=== PATIENT | female | born 1985 | race African-American/Black ===

== ENCOUNTER 2017-02-07 10:26 | Emergency (ER) | payer OTHER ==
[~2017-02-07] VITALS: Ht 165.1 cm; Wt 63.6 kg
[~2017-02-07 10:26] MED LIST: METF500T4 PO; RISP.5 PO
[2017-02-07] MEDS ORDERED: INSNOV SQ (10:53)
[2017-02-07] MEDS ORDERED: INSLAN SQ (10:53)
[2017-02-07] MEDS ORDERED: SODIUM CHLORIDE 0.9% 1,000 ML IV ONE (12:15)
[2017-02-07 12:27] LABS: BASOPHILS % (AUTO) 0.8 % (0.0-2.0); EOSINOPHILS % (AUTO) 3.1 % (1.0-6.0); HEMOGLOBIN 10.6 g/dL (12.0-16.0); LYMPHOCYTES # (AUTO) 2.1 K/uL (1.0-4.8); LYMPHOCYTES % (AUTO) 37.9 % (22.0-44.0); MEAN CORPUSCULAR HEMOGLOBIN 27.9 pg (26.0-34.0); MEAN CORPUSCULAR HGB CONC 32.3 G/dL (31.0-37.0); MEAN CORPUSCULAR VOLUME 86 fL (80-100); MONOCYTES # (AUTO) 0.7 K/uL (0.1-1.0); NEUTROPHILS # (AUTO) 2.6 K/uL (1.8-7.7); NEUTROPHILS % (AUTO) 46.2 % (40.0-70.0); PLATELET COUNT (AUTO) 461 K/uL (150-450); RED BLOOD CELL COUNT(AUTO) 3.82 MIL/uL (4.00-5.20); RED CELL DISTRIBUTION WIDTH 16.7 % (11.5-14.5); WHITE BLOOD COUNT (AUTO) 5.7 K/uL (4.5-11.0)
[2017-02-07 12:29] LABS: RBC MORPHOLOGY COMMENT NORMAL RBC MORPH
[2017-02-07 12:33] LABS: ALANINE AMINOTRANSFERASE 76 U/L (12-78); ALBUMIN 2.9 g/dL (3.4-5.0); ANION GAP 8 mmol/L (8-16); ASPARTATE AMINOTRANSFERASE 24 U/L (15-37); BILIRUBIN,TOTAL 0.3 mg/dL (0.1-1.0); CALCIUM, TOTAL 8.3 mg/dL (8.8-10.5); CARBON DIOXIDE 27 mmol/L (22-29); CHLORIDE 104 mmol/L (98-107); CREATININE 0.69 mg/dL (0.60-1.30); GLOMERULAR FILTR. RATE CALC > 60 mL/min (>60); SODIUM SERUM 139 mmol/L (136-145); TOTAL PROTEIN, SERUM 7.4 g/dL (6.4-8.2); UREA NITROGEN, BLOOD 14 mg/dL (7-18)
[2017-02-07] MEDS ORDERED: INSULIN REGULAR, HUMAN 100 UNITS/ML IVP ONE (13:00)
[2017-02-07 13:11] LABS: GLUCOSE COMMENT 1 Doctor Notified; GLUCOSE,POINT OF CARE 425 MG/DL (70-110)
[2017-02-07 14:12] LABS: GLUCOSE,POINT OF CARE 188 MG/DL (70-110)
[2017-02-07 15:49] LABS: APPEARANCE,URINE CLEAR (CLEAR); GLUCOSE, URINE (UA) >=1000 mg/dL (NEGATIVE); KETONES,URINE NEGATIVE (NEGATIVE); LEUKOCYTE ESTERASE ,URINE NEGATIVE (NEGATIVE); OCCULT BLOOD,URINE LARGE (NEGATIVE); PROTEIN,URINE NEGATIVE (NEGATIVE)
[2017-02-07 15:50] LABS: ADD UA MICROSCOPIC YES
[2017-02-07 16:00] LABS: WBC,URINE None Seen /HPF (0-5)
[2017-02-07 16:38] VITALS: BP 113/72
== END 2017-02-07 16:55 | disposition home or self-care (01) ==
LOC: EMS 10:29
DX: E11.65 Type 2 diabetes mellitus with hyperglycemia (principal); F17.210 Nicotine dependence, cigarettes, uncomplicated; Z79.4 Long term (current) use of insulin
CPT/HCPCS: 36415; 80053; 81001; 82009; 82962; 84484; 84703; 85025; 93005; 96361; 96374; 99285; J1815; J7030

== ENCOUNTER 2017-10-16 05:06 | Inpatient (IN) | payer MEDICAID, OTHER ==
[~2017-10-16] VITALS: Ht 162.6 cm; Wt 59.0 kg
[~2017-10-16 05:06] MED LIST changes: +INSLAN SQ; +INSNOV SQ; -METF500T4 PO
[2017-10-16 05:38] LABS: GLUCOSE COMMENT 2 Doctor Notified; GLUCOSE,POINT OF CARE 407 MG/DL (70-110)
[2017-10-16 05:56] LABS: BASOPHILS % (AUTO) 0.4 % (0.0-2.0); EOSINOPHILS % (AUTO) 1.7 % (1.0-6.0); HEMATOCRIT 36.4 % (36-46); HEMOGLOBIN 11.9 g/dL (12.0-16.0); LYMPHOCYTES # (AUTO) 2.1 K/uL (1.0-4.8); LYMPHOCYTES % (AUTO) 28.8 % (22.0-44.0); MEAN CORPUSCULAR HGB CONC 32.5 G/dL (31.0-37.0); MEAN CORPUSCULAR VOLUME 83 fL (80-100); MONOCYTES # (AUTO) 0.8 K/uL (0.1-1.0); MONOCYTES % (AUTO) 10.5 % (2.0-9.0); NEUTROPHILS # (AUTO) 4.3 K/uL (1.8-7.7); NEUTROPHILS % (AUTO) 58.6 % (40.0-70.0); PLATELET COUNT (AUTO) 643 K/uL (150-450); RED CELL DISTRIBUTION WIDTH 17.7 % (11.5-14.5); WHITE BLOOD COUNT (AUTO) 7.3 K/uL (4.5-11.0)
[2017-10-16 06:11] LABS: ALANINE AMINOTRANSFERASE 43 U/L (12-78); ANION GAP 12 mmol/L (8-16); ASPARTATE AMINOTRANSFERASE 33 U/L (15-37); BILIRUBIN,TOTAL 0.2 mg/dL (0.1-1.0); CALCIUM, TOTAL 8.8 mg/dL (8.8-10.5); CARBON DIOXIDE 23 mmol/L (22-29); CHLORIDE 99 mmol/L (98-107); CREATININE 0.67 mg/dL (0.60-1.30); GLOMERULAR FILTR. RATE CALC > 60 mL/min (>60); POTASSIUM 4.2 mmol/L (3.5-5.1); SODIUM SERUM 134 mmol/L (136-145); TOTAL PROTEIN, SERUM 8.2 g/dL (6.4-8.2); UREA NITROGEN, BLOOD 14 mg/dL (7-18)
[2017-10-16 07:57] LABS: GLUCOSE,POINT OF CARE 350 MG/DL (70-110)
[2017-10-16] MEDS ORDERED: INSULIN REGULAR, HUMAN 100 UNITS/ML SQ ONE (08:00)
[2017-10-16 10:03] LABS: GLUCOSE,POINT OF CARE 516 MG/DL (70-110)
[2017-10-16 10:58] LABS: GLUCOSE,POINT OF CARE 447 MG/DL (70-110)
[2017-10-16 12:27] LABS: GLUCOSE COMMENT 2 Doctor Notified; GLUCOSE,POINT OF CARE 308 MG/DL (70-110)
[2017-10-16] MEDS ORDERED: MAG HYDROX/AL HYDROX/SIMETH ES 30 ML SUSPENSION UDCUP PO PRN (12:30)
[2017-10-16] MEDS ORDERED: ZOLPIDEM TARTRATE 10 MG TABLET PO PRN (12:30)
[2017-10-16] MEDS ORDERED: HydrOXYzine PAMOATE 50 MG CAPSULE PO PRN (12:30)
[2017-10-16] MEDS ORDERED: LOPERAMIDE HCL 2 MG CAPSULE PO PRN (12:30)
[2017-10-16] MEDS ORDERED: ACETAMINOPHEN 325 MG TABLET PO PRN (12:30)
[2017-10-16] MEDS ORDERED: GuaiFENesin/D-METHORPHAN [SUGAR-FREE] 200-20MG/10 ML SYRUP UDCUP PO PRN (12:30)
[2017-10-16] MEDS ORDERED: PROMETHAZINE HCL 25 MG TABLET PO PRN (12:30)
[2017-10-16] MEDS ORDERED: MAGNESIUM HYDROXIDE SUSPENSION 30 ML UDCUP PO PRN (12:30)
[2017-10-16] MEDS ORDERED: LORazepam 2 MG TABLET PO PRN (12:30)
[2017-10-16] MEDS ORDERED: OLANZapine 5 MG RAPDIS TABLET PO PRN (12:30)
[2017-10-16] MEDS ORDERED: TUBERCULIN, PURIFIED PROTEIN DERIVATIVE 5 TU/0.1 ML SYG ID ONE (12:30)
[2017-10-16 12:58] LABS: GLUCOSE,POINT OF CARE 320 MG/DL (70-110)
[2017-10-16 13:06] LABS: GLUCOSE, URINE (UA) >=1000 mg/dL (NEGATIVE); KETONES,URINE NEGATIVE (NEGATIVE); LEUKOCYTE ESTERASE ,URINE NEGATIVE (NEGATIVE); OCCULT BLOOD,URINE MODERATE (NEGATIVE); PROTEIN,URINE NEGATIVE (NEGATIVE)
[2017-10-16 13:09] LABS: ADD UA MICROSCOPIC YES; APPEARANCE,URINE HAZY (CLEAR)
[2017-10-16 13:23] LABS: SQUAMOUS EPITHELIAL CELL,UR Moderate /LPF (None Seen)
[2017-10-16 14:47] LABS: GLUCOSE,POINT OF CARE 282 MG/DL (70-110)
[2017-10-16] MEDS ORDERED: DEXTROSE 50%-WATER 25 GM/50 ML SYRINGE IVP PRN (15:45)
[2017-10-16 15:59] VITALS: BP 136/76
[2017-10-16 17:02] LABS: GLUCOSE,POINT OF CARE 226 MG/DL (70-110)
[2017-10-16 18:11] VITALS: BP 113/71
[2017-10-16] MEDS ORDERED: INFLUENZA VIRUS VACCINE QVS 2017-18 (3YR+)/PF 60 MCG/0.5 ML SYRINGE IM ONE (18:45)
[2017-10-16 20:52] LABS: GLUCOSE,POINT OF CARE 439 MG/DL (70-110)
[2017-10-16] MEDS ORDERED: INSULIN DETEMIR 100 UNITS/ML SQ SCH (21:00)
[2017-10-16] MEDS: THIAMINE HCL 100 MG TABLET PO SCH (21:15)
[2017-10-16] MEDS: OLANZapine 5 MG RAPDIS TABLET PO SCH (21:16)
[2017-10-16] MEDS: INSULIN ASPART 100 UNITS/ML SQ PRN (22:49)
[2017-10-16 22:52] LABS: GLUCOSE COMMENT 1 Doctor Notified; GLUCOSE COMMENT 2 Received Meds; GLUCOSE,POINT OF CARE 403 MG/DL (70-110)
[2017-10-16 22:52] LABS: GLUCOSE COMMENT 1 Doctor Notified; GLUCOSE COMMENT 2 Received Meds; GLUCOSE,POINT OF CARE 340 MG/DL (70-110)
[2017-10-17 06:22] LABS: GLUCOSE,POINT OF CARE 119 MG/DL (70-110)
[2017-10-17 08:46] VITALS: BP 104/59
[2017-10-17 09:50] LABS: BASOPHILS % (AUTO) 0.1 % (0.0-2.0); EOSINOPHILS % (AUTO) 0.5 % (1.0-6.0); HEMATOCRIT 33.3 % (36-46); HEMOGLOBIN 10.9 g/dL (12.0-16.0); LYMPHOCYTES # (AUTO) 1.6 K/uL (1.0-4.8); LYMPHOCYTES % (AUTO) 15.3 % (22.0-44.0); MEAN CORPUSCULAR HEMOGLOBIN 27.2 pg (26.0-34.0); MEAN CORPUSCULAR HGB CONC 32.8 G/dL (31.0-37.0); MEAN CORPUSCULAR VOLUME 83 fL (80-100); MONOCYTES # (AUTO) 0.7 K/uL (0.1-1.0); MONOCYTES % (AUTO) 7.2 % (2.0-9.0); NEUTROPHILS # (AUTO) 7.8 K/uL (1.8-7.7); NEUTROPHILS % (AUTO) 76.9 % (40.0-70.0); PLATELET COUNT (AUTO) 594 K/uL (150-450); RED BLOOD CELL COUNT(AUTO) 4.01 MIL/uL (4.00-5.20); RED CELL DISTRIBUTION WIDTH 17.1 % (11.5-14.5); WHITE BLOOD COUNT (AUTO) 10.2 K/uL (4.5-11.0)
[2017-10-17 10:16] LABS: ALANINE AMINOTRANSFERASE 32 U/L (12-78); ALBUMIN 2.5 g/dL (3.4-5.0); ANION GAP 7 mmol/L (8-16); ASPARTATE AMINOTRANSFERASE 21 U/L (15-37); BILIRUBIN,TOTAL 0.3 mg/dL (0.1-1.0); CALCIUM, TOTAL 8.4 mg/dL (8.8-10.5); CARBON DIOXIDE 27 mmol/L (22-29); CHLORIDE 99 mmol/L (98-107); CHOL/HDL RATIO 2.8 (3.9-5.7); CREATININE 0.76 mg/dL (0.60-1.30); GLOMERULAR FILTR. RATE CALC > 60 mL/min (>60); POTASSIUM 4.5 mmol/L (3.5-5.1); SODIUM SERUM 133 mmol/L (136-145); THYROID STIMULATING HORMONE 0.84 uIU/mL (0.36-3.74); TOTAL PROTEIN, SERUM 6.7 g/dL (6.4-8.2); UREA NITROGEN, BLOOD 16 mg/dL (7-18)
[2017-10-17 10:18] LABS: HEMOGLOBIN A1C 14.3 % (4.5-6.2); RBC MORPHOLOGY COMMENT ABNORMAL RBC MORPH
[2017-10-17] MEDS: MULTIVITAMINS WITH MINERALS, THERAPEUTIC TABLET PO SCH (10:24)
[2017-10-17] MEDS: FOLIC ACID 1 MG TABLET PO SCH (10:24)
[2017-10-17] MEDS: THIAMINE HCL 100 MG TABLET PO SCH ×2 (10:25→16:42)
[2017-10-17] MEDS: FLUoxetine HCL 20 MG CAPSULE PO SCH (10:25)
[2017-10-17 10:37] LABS: GLUCOSE,POINT OF CARE 513 MG/DL (70-110)
[2017-10-17] MEDS ORDERED: INSULIN ASPART 100 UNITS/ML SQ ONE (11:00)
[2017-10-17] MEDS ORDERED: INSULIN DETEMIR 100 UNITS/ML SQ SCH (11:00)
[2017-10-17 11:42] LABS: GLUCOSE,POINT OF CARE 480 MG/DL (70-110)
[2017-10-17 12:07] LABS: GLUCOSE,POINT OF CARE 443 MG/DL (70-110)
[2017-10-17] MEDS: INSULIN ASPART 100 UNITS/ML SQ PRN ×3 (12:08→21:22)
[2017-10-17] MEDS ORDERED: IBUPROFEN 400 MG TABLET PO PRN (16:30)
[2017-10-17] MEDS ORDERED: ACETAMINOPHEN 325 MG TABLET PO PRN (16:30)
[2017-10-17 16:37] LABS: GLUCOSE COMMENT 1 Received Meds; GLUCOSE,POINT OF CARE 236 MG/DL (70-110)
[2017-10-17] MEDS: INSULIN DETEMIR 100 UNITS/ML SQ SCH (17:25)
[2017-10-17 17:27] LABS: GLUCOSE COMMENT 1 Received Meds; GLUCOSE,POINT OF CARE 220 MG/DL (70-110)
[2017-10-17 17:55] VITALS: BP 113/68
[2017-10-17] MEDS: OLANZapine 5 MG RAPDIS TABLET PO SCH (21:20)
[2017-10-17 21:22] LABS: GLUCOSE COMMENT 1 Received Meds; GLUCOSE,POINT OF CARE 161 MG/DL (70-110)
[2017-10-18 05:48] LABS: GLUCOSE COMMENT 1 Received Meds; GLUCOSE,POINT OF CARE 142 MG/DL (70-110)
[2017-10-18] MEDS: INSULIN ASPART 100 UNITS/ML SQ PRN ×4 (06:28→21:23)
[2017-10-18 06:37] LABS: CHOL/HDL RATIO 2.7 (3.9-5.7)
[2017-10-18 08:33] VITALS: BP 100/60
[2017-10-18] MEDS ORDERED: FLUoxetine HCL 20 MG CAPSULE PO SCH (09:00)
[2017-10-18] MEDS: FOLIC ACID 1 MG TABLET PO SCH (09:58)
[2017-10-18] MEDS: THIAMINE HCL 100 MG TABLET PO SCH ×2 (09:58→16:45)
[2017-10-18] MEDS: MULTIVITAMINS WITH MINERALS, THERAPEUTIC TABLET PO SCH (09:58)
[2017-10-18] MEDS: FLUoxetine HCL 20 MG CAPSULE PO SCH (09:59)
[2017-10-18] MEDS: INSULIN DETEMIR 100 UNITS/ML SQ SCH ×2 (10:15→17:05)
[2017-10-18 10:17] LABS: GLUCOSE,POINT OF CARE 342 MG/DL (70-110)
[2017-10-18 11:53] LABS: GLUCOSE,POINT OF CARE 285 MG/DL (70-110)
[2017-10-18 16:52] LABS: GLUCOSE COMMENT 1 Doctor Notified; GLUCOSE COMMENT 2 Received Meds; GLUCOSE,POINT OF CARE 419 MG/DL (70-110)
[2017-10-18 17:07] LABS: GLUCOSE COMMENT 1 Received Meds; GLUCOSE,POINT OF CARE 381 MG/DL (70-110)
[2017-10-18 19:15] VITALS: BP 106/61
[2017-10-18 21:22] LABS: GLUCOSE COMMENT 1 Received Meds; GLUCOSE,POINT OF CARE 357 MG/DL (70-110)
[2017-10-18] MEDS: OLANZapine 5 MG RAPDIS TABLET PO SCH (21:23)
[2017-10-19 06:07] LABS: GLUCOSE,POINT OF CARE 107 MG/DL (70-110)
[2017-10-19 08:22] LABS: GLUCOSE COMMENT 1 Received Meds; GLUCOSE,POINT OF CARE 246 MG/DL (70-110)
[2017-10-19 08:40] VITALS: BP 104/73
[2017-10-19] MEDS: INSULIN DETEMIR 100 UNITS/ML SQ SCH ×2 (08:47→17:42)
[2017-10-19] MEDS: FLUoxetine HCL 20 MG CAPSULE PO SCH (09:00)
[2017-10-19] MEDS: FOLIC ACID 1 MG TABLET PO SCH (09:00)
[2017-10-19] MEDS: MULTIVITAMINS WITH MINERALS, THERAPEUTIC TABLET PO SCH (09:00)
[2017-10-19] MEDS: THIAMINE HCL 100 MG TABLET PO SCH ×2 (09:00→16:41)
[2017-10-19 11:57] LABS: GLUCOSE,POINT OF CARE 251 MG/DL (70-110)
[2017-10-19] MEDS: INSULIN ASPART 100 UNITS/ML SQ PRN ×2 (12:12→21:18)
[2017-10-19 16:48] LABS: GLUCOSE,POINT OF CARE 422 MG/DL (70-110)
[2017-10-19 17:23] LABS: GLUCOSE COMMENT 1 Doctor Notified; GLUCOSE COMMENT 2 Repeated; GLUCOSE,POINT OF CARE 427 MG/DL (70-110)
[2017-10-19] MEDS ORDERED: INSULIN ASPART 100 UNITS/ML SQ ONE (17:30)
[2017-10-19 20:05] VITALS: BP 110/76
[2017-10-19] MEDS: OLANZapine 5 MG RAPDIS TABLET PO SCH (20:38)
[2017-10-19 20:48] LABS: GLUCOSE,POINT OF CARE 234 MG/DL (70-110)
[2017-10-20 06:07] LABS: GLUCOSE,POINT OF CARE 254 MG/DL (70-110)
[2017-10-20] MEDS: INSULIN ASPART 100 UNITS/ML SQ SCH ×3 (07:01→17:33)
[2017-10-20] MEDS: INSULIN ASPART 100 UNITS/ML SQ PRN ×3 (07:02→17:34)
[2017-10-20] MEDS: THIAMINE HCL 100 MG TABLET PO SCH ×2 (10:18→17:23)
[2017-10-20] MEDS: FLUoxetine HCL 20 MG CAPSULE PO SCH (10:18)
[2017-10-20] MEDS: FOLIC ACID 1 MG TABLET PO SCH (10:18)
[2017-10-20] MEDS: MULTIVITAMINS WITH MINERALS, THERAPEUTIC TABLET PO SCH (10:18)
[2017-10-20] MEDS: INSULIN DETEMIR 100 UNITS/ML SQ SCH ×2 (10:22→17:40)
[2017-10-20 12:07] LABS: GLUCOSE COMMENT 1 Received Meds; GLUCOSE,POINT OF CARE 440 MG/DL (70-110)
[2017-10-20 12:36] VITALS: BP 104/57
[2017-10-20 17:23] VITALS: BP 116/66
[2017-10-20 17:32] LABS: GLUCOSE,POINT OF CARE 272 MG/DL (70-110)
[2017-10-20] MEDS: OLANZapine 5 MG RAPDIS TABLET PO SCH (21:07)
[2017-10-20 21:17] LABS: GLUCOSE COMMENT 1 Doctor Notified; GLUCOSE,POINT OF CARE 417 MG/DL (70-110)
[2017-10-20] MEDS ORDERED: INSULIN ASPART 100 UNITS/ML SQ ONE (21:30)
[2017-10-20] MEDS: TraZODone HCL 100 MG TABLET PO SCH (21:57)
[2017-10-21 05:52] LABS: GLUCOSE,POINT OF CARE 280 MG/DL (70-110)
[2017-10-21] MEDS: INSULIN ASPART 100 UNITS/ML SQ SCH ×3 (07:16→17:22)
[2017-10-21] MEDS: INSULIN ASPART 100 UNITS/ML SQ PRN (07:17)
[2017-10-21 08:00] VITALS: BP 105/64
[2017-10-21] MEDS: MULTIVITAMINS WITH MINERALS, THERAPEUTIC TABLET PO SCH (09:39)
[2017-10-21] MEDS: FOLIC ACID 1 MG TABLET PO SCH (09:39)
[2017-10-21] MEDS: THIAMINE HCL 100 MG TABLET PO SCH ×2 (09:39→16:37)
[2017-10-21] MEDS: FLUoxetine HCL 20 MG CAPSULE PO SCH (09:39)
[2017-10-21] MEDS: INSULIN DETEMIR 100 UNITS/ML SQ SCH ×2 (09:53→17:23)
[2017-10-21] MEDS ORDERED: INSULIN ASPART 100 UNITS/ML SQ ONE ×3 (11:30→22:15)
[2017-10-21 11:47] LABS: GLUCOSE,POINT OF CARE 476 MG/DL (70-110)
[2017-10-21 16:53] LABS: GLUCOSE,POINT OF CARE 397 MG/DL (70-110)
[2017-10-21 17:28] VITALS: BP 124/75
[2017-10-21] MEDS: TraZODone HCL 100 MG TABLET PO SCH (21:42)
[2017-10-21] MEDS: OLANZapine 5 MG RAPDIS TABLET PO SCH (21:42)
[2017-10-21 21:47] LABS: GLUCOSE,POINT OF CARE 350 MG/DL (70-110)
[2017-10-22 05:47] LABS: GLUCOSE COMMENT 1 Received Meds; GLUCOSE COMMENT 2 Doctor Notified; GLUCOSE,POINT OF CARE 290 MG/DL (70-110)
[2017-10-22] MEDS: INSULIN ASPART 100 UNITS/ML SQ SCH ×3 (07:11→17:37)
[2017-10-22 08:16] VITALS: BP 120/74
[2017-10-22] MEDS: INSULIN DETEMIR 100 UNITS/ML SQ SCH ×2 (09:02→17:30)
[2017-10-22] MEDS: THIAMINE HCL 100 MG TABLET PO SCH ×2 (09:06→16:13)
[2017-10-22] MEDS: MULTIVITAMINS WITH MINERALS, THERAPEUTIC TABLET PO SCH (09:06)
[2017-10-22] MEDS: FOLIC ACID 1 MG TABLET PO SCH (09:06)
[2017-10-22] MEDS: FLUoxetine HCL 20 MG CAPSULE PO SCH (09:06)
[2017-10-22 11:32] LABS: GLUCOSE,POINT OF CARE 265 MG/DL (70-110)
[2017-10-22 16:14] VITALS: BP 112/67
[2017-10-22 17:07] LABS: GLUCOSE COMMENT 1 Doctor Notified; GLUCOSE,POINT OF CARE 482 MG/DL (70-110)
[2017-10-22 17:14] VITALS: BP 123/74
[2017-10-22 19:30] VITALS: BP 121/70
[2017-10-22 20:30] VITALS: BP 118/67
[2017-10-22] MEDS: OLANZapine 5 MG RAPDIS TABLET PO SCH (22:00)
[2017-10-22] MEDS: TraZODone HCL 100 MG TABLET PO SCH (22:01)
[2017-10-22 22:07] LABS: GLUCOSE COMMENT 1 Doctor Notified; GLUCOSE,POINT OF CARE 430 MG/DL (70-110)
[2017-10-22] MEDS ORDERED: INSULIN ASPART 100 UNITS/ML SQ ONE (22:15)
[2017-10-23 05:27] LABS: GLUCOSE COMMENT 1 FASTING; GLUCOSE,POINT OF CARE 196 MG/DL (70-110)
[2017-10-23] MEDS ORDERED: INSULIN ASPART 100 UNITS/ML SQ ONE ×2 (06:15→21:00)
[2017-10-23] MEDS: INSULIN ASPART 100 UNITS/ML SQ SCH ×3 (06:50→17:29)
[2017-10-23 08:00] VITALS: BP 113/75
[2017-10-23] MEDS: FOLIC ACID 1 MG TABLET PO SCH (09:24)
[2017-10-23] MEDS: THIAMINE HCL 100 MG TABLET PO SCH ×2 (09:24→17:28)
[2017-10-23] MEDS: MULTIVITAMINS WITH MINERALS, THERAPEUTIC TABLET PO SCH (09:24)
[2017-10-23] MEDS: FLUoxetine HCL 20 MG CAPSULE PO SCH (09:24)
[2017-10-23] MEDS: INSULIN DETEMIR 100 UNITS/ML SQ SCH ×2 (09:42→17:30)
[2017-10-23 11:27] LABS: GLUCOSE,POINT OF CARE 245 MG/DL (70-110)
[2017-10-23 17:41] LABS: GLUCOSE COMMENT 1 Doctor Notified; GLUCOSE,POINT OF CARE 456 MG/DL (70-110)
[2017-10-23] MEDS: OLANZapine 5 MG RAPDIS TABLET PO SCH (20:12)
[2017-10-23 20:57] LABS: GLUCOSE COMMENT 1 Doctor Notified; GLUCOSE,POINT OF CARE 368 MG/DL (70-110)
[2017-10-23] MEDS ORDERED: TraZODone HCL 150 MG TABLET PO SCH (21:00)
[2017-10-23 21:28] VITALS: BP 121/82
[2017-10-24 06:13] LABS: GLUCOSE COMMENT 1 Received Meds; GLUCOSE,POINT OF CARE 188 MG/DL (70-110)
[2017-10-24] MEDS: INSULIN ASPART 100 UNITS/ML SQ SCH ×3 (07:14→17:00)
[2017-10-24 08:10] VITALS: BP 123/76
[2017-10-24] MEDS: FLUoxetine HCL 20 MG CAPSULE PO SCH (08:16)
[2017-10-24] MEDS: THIAMINE HCL 100 MG TABLET PO SCH ×2 (08:16→16:24)
[2017-10-24] MEDS: MULTIVITAMINS WITH MINERALS, THERAPEUTIC TABLET PO SCH (08:16)
[2017-10-24] MEDS: FOLIC ACID 1 MG TABLET PO SCH (08:16)
[2017-10-24] MEDS: INSULIN DETEMIR 100 UNITS/ML SQ SCH ×2 (08:22→17:14)
[2017-10-24 11:52] LABS: GLUCOSE,POINT OF CARE 376 MG/DL (70-110)
[2017-10-24] MEDS ORDERED: INSULIN ASPART 100 UNITS/ML SQ ONE ×3 (12:00→20:45)
[2017-10-24 16:37] LABS: GLUCOSE COMMENT 1 Received Meds; GLUCOSE,POINT OF CARE 441 MG/DL (70-110)
[2017-10-24 17:31] VITALS: BP 134/76
[2017-10-24] MEDS: MIRTAZAPINE 15 MG TABLET PO SCH (20:15)
[2017-10-24] MEDS: OLANZapine 5 MG RAPDIS TABLET PO SCH (20:16)
[2017-10-24 20:28] LABS: GLUCOSE,POINT OF CARE 365 MG/DL (70-110)
[2017-10-25 05:37] LABS: GLUCOSE COMMENT 1 Received Meds; GLUCOSE,POINT OF CARE 290 MG/DL (70-110)
[2017-10-25] MEDS: INSULIN ASPART 100 UNITS/ML SQ SCH ×3 (06:43→17:15)
[2017-10-25 08:10] VITALS: BP 138/94
[2017-10-25] MEDS: FLUoxetine HCL 20 MG CAPSULE PO SCH (09:37)
[2017-10-25] MEDS: NALTREXONE HCL 50 MG TABLET PO SCH (09:37)
[2017-10-25] MEDS: THIAMINE HCL 100 MG TABLET PO SCH ×2 (09:37→16:49)
[2017-10-25] MEDS: MULTIVITAMINS WITH MINERALS, THERAPEUTIC TABLET PO SCH (09:37)
[2017-10-25] MEDS: FOLIC ACID 1 MG TABLET PO SCH (09:37)
[2017-10-25] MEDS: INSULIN DETEMIR 100 UNITS/ML SQ SCH ×2 (09:42→17:14)
[2017-10-25 11:28] LABS: GLUCOSE,POINT OF CARE 372 MG/DL (70-110)
[2017-10-25 16:42] VITALS: BP 118/71
[2017-10-25 17:07] LABS: GLUCOSE,POINT OF CARE 303 MG/DL (70-110)
[2017-10-25] MEDS: MIRTAZAPINE 15 MG TABLET PO SCH (20:27)
[2017-10-25] MEDS: OLANZapine 5 MG RAPDIS TABLET PO SCH (20:27)
[2017-10-25 20:42] LABS: GLUCOSE,POINT OF CARE 318 MG/DL (70-110)
[2017-10-25] MEDS ORDERED: INSULIN ASPART 100 UNITS/ML SQ ONE (21:00)
[2017-10-26 06:07] LABS: GLUCOSE,POINT OF CARE 146 MG/DL (70-110)
[2017-10-26] MEDS: INSULIN ASPART 100 UNITS/ML SQ SCH ×3 (07:16→17:55)
[2017-10-26 08:00] VITALS: BP 116/69
[2017-10-26] MEDS: FLUoxetine HCL 20 MG CAPSULE PO SCH (08:20)
[2017-10-26] MEDS: NALTREXONE HCL 50 MG TABLET PO SCH (08:21)
[2017-10-26] MEDS: FOLIC ACID 1 MG TABLET PO SCH (08:21)
[2017-10-26] MEDS: MULTIVITAMINS WITH MINERALS, THERAPEUTIC TABLET PO SCH (08:21)
[2017-10-26] MEDS: THIAMINE HCL 100 MG TABLET PO SCH (08:21)
[2017-10-26] MEDS: INSULIN DETEMIR 100 UNITS/ML SQ SCH ×2 (09:00→17:54)
[2017-10-26 11:07] LABS: GLUCOSE COMMENT 1 Received Meds; GLUCOSE COMMENT 2 Doctor Notified; GLUCOSE,POINT OF CARE 226 MG/DL (70-110)
[2017-10-26 17:21] VITALS: BP 128/69
[2017-10-26] MEDS ORDERED: FLUO-191 PO (17:30)
[2017-10-26] MEDS ORDERED: OLAN5TAB30 PO (17:30)
[2017-10-26] MEDS ORDERED: MIRT15 PO (17:30)
[2017-10-26] MEDS ORDERED: NALT50TA PO (17:30)
[2017-10-26 17:52] LABS: GLUCOSE COMMENT 1 Doctor Notified; GLUCOSE COMMENT 2 Received Meds; GLUCOSE,POINT OF CARE 451 MG/DL (70-110)
[2017-10-26] MEDS ORDERED: INSULIN ASPART 100 UNITS/ML SQ ONE ×2 (18:00→21:15)
[2017-10-26] MEDS: OLANZapine 5 MG RAPDIS TABLET PO SCH (20:15)
[2017-10-26 20:57] LABS: GLUCOSE COMMENT 1 Doctor Notified; GLUCOSE,POINT OF CARE 322 MG/DL (70-110)
[2017-10-26] MEDS ORDERED: MIRTAZAPINE 15 MG TABLET PO SCH (21:00)
[2017-10-27 06:02] LABS: GLUCOSE COMMENT 1 Received Meds; GLUCOSE,POINT OF CARE 258 MG/DL (70-110)
[2017-10-27] MEDS: INSULIN ASPART 100 UNITS/ML SQ SCH (06:36)
[2017-10-27] MEDS ORDERED: INSU100V12 SQ (08:24)
[2017-10-27] MEDS: INSULIN DETEMIR 100 UNITS/ML SQ SCH (08:38)
[2017-10-27 09:11] VITALS: BP 107/64
[2017-10-27] MEDS: MULTIVITAMINS WITH MINERALS, THERAPEUTIC TABLET PO SCH (09:29)
[2017-10-27] MEDS: FLUoxetine HCL 20 MG CAPSULE PO SCH (09:29)
[2017-10-27] MEDS: NALTREXONE HCL 50 MG TABLET PO SCH (09:29)
[2017-10-27 11:22] LABS: GLUCOSE,POINT OF CARE 398 MG/DL (70-110)
[2017-10-27] MEDS ORDERED: INSULIN ASPART 100 UNITS/ML SQ SCH (11:30)
== END 2017-10-27 14:10 | disposition home or self-care (01) | DRG 750 ==
LOC: EMS 05:08 → 3EI 15:30
PROVIDERS: ADMIT Psychiatry & Neurology Psychiatry; ATTEND Psychiatry & Neurology Psychiatry
DX: F25.9 Schizoaffective disorder, unspecified (principal); E11.65 Type 2 diabetes mellitus with hyperglycemia; R45.851 Suicidal ideations; D64.9 Anemia, unspecified; E87.1 Hypo-osmolality and hyponatremia; F17.200 Nicotine dependence, unspecified, uncomplicated; G47.00 Insomnia, unspecified; Z81.8 Family history of other mental and behavioral disorders; Z91.19 Patient's noncompliance with other medical treatment and regimen
CPT/HCPCS: 82962; 83036; 84439; 84443; 86592; 93005; 96372; 99285; G0480; J1815

== ENCOUNTER 2018-08-25 12:01 | Emergency (ER) | payer SELFPAY ==
[~2018-08-25] VITALS: Ht 165.1 cm; Wt 50.0 kg
[~2018-08-25 12:01] MED LIST changes: +FLUO-191 PO; -INSLAN SQ; +INSU100V12 SQ; +MIRT15 PO; +NALT50TA PO; +OLAN5TAB30 PO; -RISP.5 PO
[2018-08-25] MEDS ORDERED: INSULIN REGULAR, HUMAN 100 UNITS/ML IVP ONE (12:45)
[2018-08-25] MEDS ORDERED: SODIUM CHLORIDE 0.9% 1,000 ML IV ONE (12:45)
[2018-08-25] MEDS ORDERED: HYDROCODONE/ACETAMINOPHEN 5-325 MG TABLET PO ONE (12:45)
[2018-08-25] MEDS ORDERED: BUPIVACAINE HCL/PF 0.5% 10 ML VIAL INJ ONE (14:00)
[2018-08-25 14:31] LABS: ANION GAP 9 mmol/L (8-16); CARBON DIOXIDE 23 mmol/L (22-29); CHLORIDE 103 mmol/L (98-107); CREATININE 0.72 mg/dL (0.60-1.30); GLOMERULAR FILTR. RATE CALC > 60 mL/min (>60); GLUCOSE,RANDOM 288 mg/dL (70-110); POTASSIUM 3.6 mmol/L (3.5-5.1); SODIUM SERUM 135 mmol/L (136-145); UREA NITROGEN, BLOOD 11 mg/dL (7-18)
[2018-08-25 15:18] VITALS: BP 121/82
[2018-08-26 14:27] LABS: GLUCOSE,POINT OF CARE > 600 MG/DL (70-110)
[2018-08-26 14:42] LABS: GLUCOSE,POINT OF CARE > 600 MG/DL (70-110)
[2018-08-26 15:57] LABS: GLUCOSE,POINT OF CARE 219 MG/DL (70-110)
== END 2018-08-25 15:31 | disposition home or self-care (01) ==
LOC: EMS 12:02
DX: S63.286A Dislocation of proximal interphalangeal joint of right little finger, initial encounter (principal); Y04.0XXA Assault by unarmed brawl or fight, initial encounter; Y93.89 Activity, other specified; Y92.89 Other specified places as the place of occurrence of the external cause; Y99.8 Other external cause status; E11.65 Type 2 diabetes mellitus with hyperglycemia; Z79.4 Long term (current) use of insulin; Z79.84 Long term (current) use of oral hypoglycemic drugs; F17.210 Nicotine dependence, cigarettes, uncomplicated; F15.90 Other stimulant use, unspecified, uncomplicated
CPT/HCPCS: 26770; 36415; 73140; 80048; 82948; 82962; 96361; 96374; 99285; J1815; J3490; J7030

== ENCOUNTER 2018-09-26 15:23 | Emergency (ER) | payer SELFPAY ==
[~2018-09-26] VITALS: Ht 160 cm; Wt 49.5 kg
[2018-09-26] MEDS ORDERED: POTASSIUM CHL 20 MEQ/0.45% NS 1,000 ML IV PRN (16:30)
[2018-09-26] MEDS ORDERED: SODIUM CHLORIDE 0.45% 1,000 ML IV PRN (16:30)
[2018-09-26] MEDS ORDERED: DEXTROSE 50%-WATER 25 GM/50 ML SYRINGE IVP PRN (16:30)
[2018-09-26] MEDS ORDERED: DEXTROSE 5%-0.45% SODIUM CHL 1,000 ML IV PRN (16:30)
[2018-09-26] MEDS ORDERED: POTASSIUM CHLORIDE 40 MEQ in SODIUM CHLORIDE 0.45% 1,000 ML IV PRN (16:30)
[2018-09-26] MEDS ORDERED: SODIUM CHLORIDE 0.9% 1,000 ML IV SCH (16:30)
[2018-09-26 16:41] LABS: BASOPHILS % (AUTO) 1.1 % (0.0-2.0); HEMATOCRIT 39.8 % (36-46); HEMOGLOBIN 12.5 g/dL (12.0-16.0); LYMPHOCYTES # (AUTO) 1.3 K/uL (1.0-4.8); LYMPHOCYTES % (AUTO) 15.8 % (22.0-44.0); MEAN CORPUSCULAR HEMOGLOBIN 27.7 pg (26.0-34.0); MEAN CORPUSCULAR HGB CONC 31.4 G/dL (31.0-37.0); MEAN CORPUSCULAR VOLUME 88 fL (80-100); MONOCYTES # (AUTO) 0.6 K/uL (0.1-1.0); MONOCYTES % (AUTO) 8.1 % (2.0-9.0); NEUTROPHILS # (AUTO) 5.9 K/uL (1.8-7.7); PLATELET COUNT (AUTO) 643 K/uL (150-450); RED BLOOD CELL COUNT(AUTO) 4.52 MIL/uL (4.00-5.20); RED CELL DISTRIBUTION WIDTH 17.5 % (11.5-14.5)
[2018-09-26 16:47] LABS: APPEARANCE,URINE TURBID (CLEAR); GLUCOSE, URINE (UA) >=1000 mg/dL (NEGATIVE); KETONES,URINE 15 mg/dL (NEGATIVE); LEUKOCYTE ESTERASE ,URINE MODERATE (NEGATIVE); NITRATE,URINE POSITIVE (NEGATIVE); OCCULT BLOOD,URINE LARGE (NEGATIVE); PROTEIN,URINE SEE CONFIRM (NEGATIVE)
[2018-09-26 16:48] LABS: BILIRUBIN,URINE PRELIM. POSITIVE (NEGATIVE)
[2018-09-26 17:00] LABS: RBC,URINE Full Field /HPF (0-2); SULFOSALICYLIC ACID,URINE 4+ (Negative)
[2018-09-26] MEDS ORDERED: CefTRIAXone SODIUM 1 GM in DEXTROSE 5%-WATER 10 ML IV ONE (17:00)
[2018-09-26 17:02] LABS: ANION GAP 8 mmol/L (8-16); CALCIUM, TOTAL 8.2 mg/dL (8.8-10.5); CARBON DIOXIDE 24 mmol/L (22-29); CHLORIDE 97 mmol/L (98-107); CREATININE 0.99 mg/dL (0.60-1.30); GLOMERULAR FILTR. RATE CALC > 60 mL/min (>60); HCG,QUANTITATIVE < 1 mIU/mL (0-6); POTASSIUM 3.6 mmol/L (3.5-5.1); SODIUM SERUM 129 mmol/L (136-145); UREA NITROGEN, BLOOD 6 mg/dL (7-18)
[2018-09-26 17:04] LABS: BACTERIA,URINE Moderate /HPF (None Seen); SQUAMOUS EPITHELIAL CELL,UR Few /LPF (None Seen)
[2018-09-26 17:09] LABS: GLUCOSE,RANDOM 631 mg/dL (70-110)
[2018-09-26] MEDS ORDERED: INSULIN REGULAR, HUMAN 100 UNITS/ML SQ ONE (17:30)
[2018-09-26] MEDS ORDERED: SODIUM CHLORIDE 0.9% 1,000 ML IV ONE (19:00)
[2018-09-26 20:37] LABS: GLUCOSE,POINT OF CARE 192 MG/DL (70-110)
[2018-09-26 20:58] VITALS: BP 129/78
== END 2018-09-26 21:28 | disposition home or self-care (01) ==
LOC: EMS 15:25
DX: E11.65 Type 2 diabetes mellitus with hyperglycemia (principal); N39.0 Urinary tract infection, site not specified; R41.82 Altered mental status, unspecified; F20.9 Schizophrenia, unspecified; F15.90 Other stimulant use, unspecified, uncomplicated; F17.210 Nicotine dependence, cigarettes, uncomplicated; Z79.4 Long term (current) use of insulin
CPT/HCPCS: 36415; 71045; 80048; 81001; 82009; 82962; 84702; 85025; 87086; 93005; 96361; 96372; 96374; 99285; J0696; J1815; J7030; J7060

== ENCOUNTER 2018-12-12 06:04 | Emergency (ER) | payer MEDICAID ==
[~2018-12-12] VITALS: Ht 165.1 cm; Wt 52.3 kg
[2018-12-12 07:22] LABS: BASOPHILS % (AUTO) 0.9 % (0.0-2.0); EOSINOPHILS % (AUTO) 0.4 % (1.0-6.0); HEMATOCRIT 42.4 % (36-46); HEMOGLOBIN 13.4 g/dL (12.0-16.0); LYMPHOCYTES # (AUTO) 1.1 K/uL (1.0-4.8); LYMPHOCYTES % (AUTO) 12.1 % (22.0-44.0); MEAN CORPUSCULAR HEMOGLOBIN 28.2 pg (26.0-34.0); MEAN CORPUSCULAR HGB CONC 31.6 G/dL (31.0-37.0); MEAN CORPUSCULAR VOLUME 89 fL (80-100); MONOCYTES # (AUTO) 0.4 K/uL (0.1-1.0); MONOCYTES % (AUTO) 4.6 % (2.0-9.0); NEUTROPHILS # (AUTO) 7.5 K/uL (1.8-7.7); PLATELET COUNT (AUTO) 523 K/uL (150-450); RED BLOOD CELL COUNT(AUTO) 4.75 MIL/uL (4.00-5.20); RED CELL DISTRIBUTION WIDTH 15.9 % (11.5-14.5)
[2018-12-12 07:34] LABS: ACETONE,BLOOD NEGATIVE (NEGATIVE)
[2018-12-12 07:49] LABS: ALANINE AMINOTRANSFERASE 34 U/L (12-78); ALBUMIN 3.6 g/dL (3.4-5.0); ALKALINE PHOSPHATASE 289 U/L (46-116); ANION GAP 9 mmol/L (8-16); ASPARTATE AMINOTRANSFERASE 36 U/L (15-37); BILIRUBIN,TOTAL 0.3 mg/dL (0.1-1.0); CALCIUM, TOTAL 9.8 mg/dL (8.8-10.5); CARBON DIOXIDE 25 mmol/L (22-29); CHLORIDE 94 mmol/L (98-107); CREATININE 0.89 mg/dL (0.60-1.30); GLOMERULAR FILTR. RATE CALC > 60 mL/min (>60); POTASSIUM 4.4 mmol/L (3.5-5.1); SODIUM SERUM 128 mmol/L (136-145); TOTAL PROTEIN, SERUM 8.1 g/dL (6.4-8.2); UREA NITROGEN, BLOOD 14 mg/dL (7-18)
[2018-12-12 07:51] LABS: GLUCOSE,RANDOM 730 mg/dL (70-110)
[2018-12-12] MEDS ORDERED: INSULIN REGULAR, HUMAN 100 UNITS/ML IVP ONE (08:00)
[2018-12-12] MEDS ORDERED: SODIUM CHLORIDE 0.9% 1,000 ML IV ONE ×2 (08:00)
[2018-12-12] MEDS ORDERED: MORPHINE SULFATE 4 MG/ML SYRINGE IVP ONE (08:45)
[2018-12-12 09:44] LABS: GLUCOSE,POINT OF CARE 214 MG/DL (70-110)
[2018-12-12 10:53] LABS: AMPHET/METH SCREEN,URINE POSITIVE (NEGATIVE); BARBITURATE SCREEN, URINE NEGATIVE (NEGATIVE); BENZODIAZEPINES SCREEN,URINE NEGATIVE (NEGATIVE); CANNABINOID SCREEN,URINE POSITIVE (NEGATIVE); COCAINE SCREEN,URINE NEGATIVE (NEGATIVE); METHADONE SCREEN, URINE NEGATIVE (NEGATIVE); OPIATE SCREEN,URINE POSITIVE (NEGATIVE)
[2018-12-12 10:54] LABS: PHENCYCLIDINE SCREEN,URINE NEGATIVE (NEGATIVE)
[2018-12-12 11:14] LABS: GLUCOSE,POINT OF CARE 143 MG/DL (70-110)
[2018-12-12 11:28] VITALS: BP 118/79
== END 2018-12-12 11:33 | disposition home or self-care (01) ==
LOC: EMS 06:04
DX: S20.211A Contusion of right front wall of thorax, initial encounter (principal); E11.9 Type 2 diabetes mellitus without complications; F20.9 Schizophrenia, unspecified; F17.210 Nicotine dependence, cigarettes, uncomplicated; F15.10 Other stimulant abuse, uncomplicated; W51.XXXA Accidental striking against or bumped into by another person, initial encounter; Y93.89 Activity, other specified; Y92.89 Other specified places as the place of occurrence of the external cause; Y99.8 Other external cause status
CPT/HCPCS: 36415; 70450; 71045; 80053; 80307; 82009; 82948; 82962; 84702; 85025; 96361; 96374; 96375; 99284; J1815; J2270; J7030